=== PATIENT | female | born 1995 | race African-American/Black ===

== ENCOUNTER 2018-11-07 22:15 | Emergency (ER) | payer MEDICAID ==
[~2018-11-07] VITALS: Ht 149.9 cm; Wt 61.0 kg
[2018-11-07 23:32] LABS: CLARITY URINE CLOUDY (CLEAR); COLOR URINE YELLOW (YELLOW); KETONES URINE 4+ (NEGATIVE); LEUKOCYTE ESTERASE URINE NEGATIVE (NEGATIVE); NITRITE URINE NEGATIVE (NEGATIVE); OCCULT BLOOD URINE TRACE (NEGATIVE); PH URINE 5.5 (4.5-8.0); PROTEIN URINE 1+ (NEGATIVE); SPECIFIC GRAVITY URINE 1.035 (1.005-1.030)
[2018-11-08] MEDS ORDERED: ONDANSETRON HCL 4MG/2ML INJ IM STA (00:07)
[2018-11-08 00:56] LABS: BASOPHILS % 0.4 % (0.0-2.0); HEMATOCRIT. 42.1 % (36.0-48.0); HEMOGLOBIN. 14.2 g/dL (12.0-16.0); LYMPHOCYTES % 7.7 % (20.0-50.0); MEAN CORPUSCULAR HEMOGLOBIN 29.6 pg (28.0-32.0); MEAN CORPUSCULAR VOLUME 88.1 fL (81.0-99.0); MEAN PLATELET VOLUME 8.3 fl (7.4-10.4); MONOCYTES % 6.9 % (2.0-8.0); PLATELET 463 x1000/uL (130-400); RED BLOOD CELL COUNT 4.78 mill/uL (4.2-5.4); RED CELL DISTRIBUTION WIDTH 12.9 % (11.6-14.6)
[2018-11-08 01:00] LABS: CHLORIDE 106 mEq/L (98-107)
[2018-11-08] MEDS ORDERED: SODIUM CHLORIDE 0.9% 1,000 ML IV ONE (01:15)
[2018-11-08] MEDS ORDERED: ONDANSETRON HCL 4MG/2ML INJ IV SCH (01:15)
[2018-11-08] MEDS ORDERED: FAMOTIDINE 20MG/2ML VIAL IV SCH (01:15)
[2018-11-08] MEDS ORDERED: KETOROLAC 30MG/ML VIAL IV SCH (01:15)
[2018-11-08] MEDS ORDERED: POTASSIUM CHLORIDE 20MEQ TABLET SR PO SCH (02:00)
[2018-11-08 05:01] VITALS: BP 117/71
== END 2018-11-08 05:05 | disposition home or self-care (01) ==
LOC: ER 22:15
DX: T51.0X1A Toxic effect of ethanol, accidental (unintentional), initial encounter (principal); T37.3X1A Poisoning by other antiprotozoal drugs, accidental (unintentional), initial encounter; K52.9 Noninfective gastroenteritis and colitis, unspecified; E87.6 Hypokalemia; F12.10 Cannabis abuse, uncomplicated; R11.2 Nausea with vomiting, unspecified; J45.909 Unspecified asthma, uncomplicated; Z87.440 Personal history of urinary (tract) infections; Y92.018 Other place in single-family (private) house as the place of occurrence of the external cause
CPT/HCPCS: 36415; 80053; 81003; 81025; 83690; 85025; 96361; 96372; 96374; 96375; 99283; J1885; J2405; J3490; Z7610

== ENCOUNTER 2018-11-09 07:31 | Inpatient (IN) | payer MEDICAID ==
[~2018-11-09] VITALS: Ht 149.9 cm; Wt 61.2 kg
[2018-11-09] MEDS ORDERED: SODIUM CHLORIDE 0.9% 1,000 ML IV ONE ×3 (08:00→15:15)
[2018-11-09] MEDS ORDERED: ONDANSETRON HCL 4MG/2ML INJ IV ONE (08:00)
[2018-11-09 08:30] LABS: CHLORIDE 106 mEq/L (98-107)
[2018-11-09] MEDS ORDERED: METOCLOPRAMIDE HCL 10MG/2ML VIAL IV ONE (09:15)
[2018-11-09] MEDS: KCL 20MEQ/100ML PREMIX 100 ML IV NR ×4 (09:30→16:02)
[2018-11-09] MEDS ORDERED: MAGNESIUM 2 G PREMIX 50 ML IV ONE (12:45)
[2018-11-09] MEDS ORDERED: LORAZEPAM 2MG/ML CPJ IV ONE (12:45)
[2018-11-09 15:14] LABS: *AMPHETAMINES SCREEN URINE NEGATIVE (NEGATIVE); *BARBITURATES SCREEN URINE NEGATIVE (NEGATIVE)
[2018-11-09 15:15] LABS: *BENZODIAZEPINES SCREEN URINE NEGATIVE (NEGATIVE); *COCAINE SCREEN URINE NEGATIVE (NEGATIVE); METHADONE URINE SCREEN NEGATIVE (NEGATIVE); OPIATES URINE SCREEN NEGATIVE (NEGATIVE); PHENCYCLIDINE URINE SCREEN NEGATIVE (NEGATIVE)
[2018-11-09 15:18] LABS: CANNABINOID URINE SCREEN PRESUMTIVE POSITIVE (NEGATIVE)
[2018-11-09] MEDS ORDERED: DIPHENHYDRAMINE 50MG/ML VIAL IV PRN (18:45)
[2018-11-09] MEDS ORDERED: IPRATROPIUM/ALBUTEROL 0.5-3(2.5)MG/3ML NEB INH PRN (18:45)
[2018-11-09] MEDS ORDERED: HYDROCODONE/ACETAMINOPHEN 5/325MG TABLET PO PRN (18:45)
[2018-11-09] MEDS ORDERED: ACETAMINOPHEN 325MG TABLET PO PRN (18:45)
[2018-11-09] MEDS ORDERED: MAGNESIUM/ALUMINUM HYDROXIDE/SIMETHICONE 30ML UDC PO PRN (18:45)
[2018-11-09] MEDS ORDERED: CLONIDINE 0.1MG TABLET PO PRN (18:45)
[2018-11-09] MEDS ORDERED: IOHEXOL-350 100 ML BOTTLE ONE (19:21)
[2018-11-09 20:41] LABS: PHOSPHORUS 3.5 mg/dL (2.5-4.9)
[2018-11-09 22:00] VITALS: BP 124/72
[2018-11-09] MEDS: ONDANSETRON HCL 4MG/2ML INJ IV PRN (22:06)
[2018-11-09 23:12] VITALS: BP 124/72
[2018-11-09 23:38] LABS: CREATINE KINASE 36 IU/L (26-192)
[2018-11-10] VITALS: BP 122/55
[2018-11-10] MEDS ORDERED: DEXTROSE 50% WATER 50ML SYRINGE IV PRN (01:30)
[2018-11-10] MEDS: SODIUM CHLORIDE 0.9% 1,000 ML IV SCH ×2 (02:08→11:18)
[2018-11-10 04:00] VITALS: BP 127/69
[2018-11-10] MEDS: ONDANSETRON HCL 4MG/2ML INJ IV PRN ×2 (05:25→22:59)
[2018-11-10] MEDS: INSULIN LISPRO 100 UNITS/ML SUBCUT SCH ×4 (06:51→21:00)
[2018-11-10] MEDS: BLOOD SUGAR DIAGNOSTIC STRIP TEST SCH ×4 (06:51→21:04)
[2018-11-10 08:00] VITALS: BP 136/77
[2018-11-10] MEDS ORDERED: POTASSIUM CHLORIDE 20MEQ TABLET SR PO NR (10:45)
[2018-11-10 11:27] LABS: BASOPHILS % 1.1 % (0.0-2.0); EOSINOPHILS % 0.4 % (0.0-5.0); HEMATOCRIT. 33.6 % (36.0-48.0); HEMOGLOBIN. 11.3 g/dL (12.0-16.0); LYMPHOCYTES % 26.5 % (20.0-50.0); MEAN CORPUSCULAR HEMOGLOBIN 29.8 pg (28.0-32.0); MEAN CORPUSCULAR VOLUME 88.6 fL (81.0-99.0); MEAN PLATELET VOLUME 7.5 fl (7.4-10.4); MONOCYTES % 12.7 % (2.0-8.0); NEUTROPHILS % 59.3 % (40.0-76.0); PLATELET 324 x1000/uL (130-400); RED CELL DISTRIBUTION WIDTH 12.3 % (11.6-14.6)
[2018-11-10 11:33] LABS: CHLORIDE 107 mEq/L (98-107)
[2018-11-10 11:43] LABS: LDL CHOLESTEROL 58 mg/dL (5-100)
[2018-11-10 11:44] LABS: CREATINE KINASE 30 IU/L (26-192)
[2018-11-10 11:45] LABS: HDL CHOLESTEROL 30 mg/dL (40-59)
[2018-11-10 12:00] VITALS: BP 115/53
[2018-11-10] MEDS: METOCLOPRAMIDE HCL 10MG/2ML VIAL IV SCH ×2 (12:44→18:32)
[2018-11-10 16:00] VITALS: BP 139/76
[2018-11-10] MEDS ORDERED: POTASSIUM CHLORIDE 20MEQ TABLET SR PO SCH (18:15)
[2018-11-11 00:03] VITALS: BP 142/67
[2018-11-11 04:00] VITALS: BP 125/69
[2018-11-11] MEDS: METOCLOPRAMIDE HCL 10MG/2ML VIAL IV SCH ×2 (06:00)
[2018-11-11] MEDS: BLOOD SUGAR DIAGNOSTIC STRIP TEST SCH (06:28)
[2018-11-11] MEDS: INSULIN LISPRO 100 UNITS/ML SUBCUT SCH (07:50)
[2018-11-11 08:10] VITALS: BP 116/46
[2018-11-11] MEDS: ONDANSETRON HCL 4MG/2ML INJ IV PRN (09:27)
[2018-11-11] MEDS: SODIUM CHLORIDE 0.9% 1,000 ML IV SCH (09:35)
[2018-11-11] MEDS ORDERED: ONDA4TAB5 MT (10:49)
[2018-11-11 12:17] VITALS: BP 133/65
[2018-11-11 12:30] VITALS: BP 133/65
== END 2018-11-11 13:40 | disposition home or self-care (01) | DRG 422 ==
LOC: ER 08:29 → 6WST 16:00 → EDBEDREQ 16:07 → ENRESERV 20:09
PROVIDERS: ADMIT Internal Medicine; ATTEND Internal Medicine
DX: E86.0 Dehydration (principal); E44.1 Mild protein-calorie malnutrition; R65.10 Systemic inflammatory response syndrome (SIRS) of non-infectious origin without acute organ dysfunction; E87.6 Hypokalemia; R00.0 Tachycardia, unspecified; F12.90 Cannabis use, unspecified, uncomplicated; T50.6X5A Adverse effect of antidotes and chelating agents, initial encounter; N76.0 Acute vaginitis; Y92.89 Other specified places as the place of occurrence of the external cause
CPT/HCPCS: 36415; 71045; 71275; 76604; 80048; 80061; 80305; 82248; 82550; 82962; 83735; 83880; 84100; 84443; 84484; 85379; 93005; 96361; 96374; 96375; 97116; 97162; 97165; 97535; 99285; C1893; J2060; J2405; J2765; J3475; J3480; J7030; Q9967

== ENCOUNTER 2019-06-01 01:45 | Emergency (ER) | payer MEDICAID ==
[~2019-06-01] VITALS: Ht 149.9 cm; Wt 53.0 kg
[~2019-06-01 01:45] MED LIST: ONDA4TAB5 MT
[2019-06-01 02:44] LABS: BASOPHILS % 0.8 % (0.0-2.0); EOSINOPHILS % 5.3 % (0.0-5.0); HEMATOCRIT. 35.6 % (36.0-48.0); LYMPHOCYTES % 44.9 % (20.0-50.0); MEAN CORPUSCULAR VOLUME 83.5 fL (81.0-99.0); MEAN PLATELET VOLUME 7.8 fl (7.4-10.4); PLATELET 404 x1000/uL (130-400); RED BLOOD CELL COUNT 4.27 mill/uL (4.2-5.4); RED CELL DISTRIBUTION WIDTH 13.3 % (11.6-14.6)
[2019-06-01 02:46] LABS: CHLORIDE 107 mEq/L (98-107)
[2019-06-01 02:53] LABS: CLARITY URINE CLEAR (CLEAR); COLOR URINE YELLOW (YELLOW); KETONES URINE NEGATIVE (NEGATIVE); LEUKOCYTE ESTERASE URINE TRACE (NEGATIVE); NITRITE URINE NEGATIVE (NEGATIVE); OCCULT BLOOD URINE NEGATIVE (NEGATIVE); PROTEIN URINE NEGATIVE (NEGATIVE); UROBILINOGEN URINE 0.2 E.U./dL (0.2-1.0)
[2019-06-01 06:27] VITALS: BP 106/65
== END 2019-06-01 06:39 | disposition home or self-care (01) ==
LOC: ER 01:45
DX: N83.202 Unspecified ovarian cyst, left side (principal); F12.10 Cannabis abuse, uncomplicated
CPT/HCPCS: 36415; 76830; 76856; 81003; 81025; 99284

== ENCOUNTER 2019-07-21 00:12 | Emergency (ER) | payer MEDICAID ==
[~2019-07-21] VITALS: Ht 149.9 cm; Wt 50.0 kg
[2019-07-21] MEDS ORDERED: PENICILLIN G BENZATHINE 2,400,000 UNITS/4ML SYR IM ONE (02:45)
[2019-07-21] MEDS ORDERED: AZITHROMYCIN 500 MG TABLET PO ONE (02:45)
[2019-07-21 03:35] VITALS: BP 124/76
== END 2019-07-21 03:36 | disposition home or self-care (01) ==
LOC: ER 00:12
DX: A57 Chancroid (principal); A64 Unspecified sexually transmitted disease; F12.10 Cannabis abuse, uncomplicated
CPT/HCPCS: 86592; 96372; 99283; J0561; Z7610

== ENCOUNTER 2019-08-06 21:12 | Inpatient (IN) | payer MEDICAID ==
[~2019-08-06] VITALS: Ht 144.8 cm; Wt 53.1 kg
[2019-08-06] MEDS ORDERED: ONDANSETRON HCL 4MG/2ML INJ IV STA (22:10)
[2019-08-06] MEDS ORDERED: SODIUM CHLORIDE 0.9% 1,000 ML IV ONE ×2 (22:10→22:15)
[2019-08-06] MEDS ORDERED: MORPHINE SULFATE 4 MG/ML CPJ (NOT FOR IM USE) IV STA (22:10)
[2019-08-06 22:52] LABS: HEMATOCRIT. 39.2 % (36.0-48.0); HEMOGLOBIN. 13.3 g/dL (12.0-16.0); MEAN CORPUSCULAR HEMOGLOBIN 27.7 pg (28.0-32.0); MEAN CORPUSCULAR VOLUME 81.6 fL (81.0-99.0); MEAN PLATELET VOLUME 8.3 fl (7.4-10.4); PLATELET 263 x1000/uL (130-400)
[2019-08-06 22:57] LABS: CHLORIDE 101 mEq/L (98-107)
[2019-08-06 22:58] LABS: HCG SCREEN NEGATIVE
[2019-08-06 23:11] LABS: PLATELET ESTIMATE NORMAL
[2019-08-06 23:17] LABS: CLARITY URINE CLEAR (CLEAR); COLOR URINE YELLOW (YELLOW); KETONES URINE 3+ (NEGATIVE); LEUKOCYTE ESTERASE URINE TRACE (NEGATIVE); NITRITE URINE NEGATIVE (NEGATIVE); OCCULT BLOOD URINE 3+ (NEGATIVE); PH URINE 6.5 (4.5-8.0); PROTEIN URINE TRACE (NEGATIVE); SPECIFIC GRAVITY URINE 1.016 (1.005-1.030)
[2019-08-07] MEDS ORDERED: KETOROLAC 30MG/ML VIAL IV ONE (00:30)
[2019-08-07] MEDS ORDERED: SODIUM CHLORIDE 0.9% 1,000 ML IV ONE ×2 (02:00→03:45)
[2019-08-07] MEDS ORDERED: CEFTRIAXONE 1 G PREMIX 50 ML IV ONE (02:00)
[2019-08-07 09:30] VITALS: BP 126/83
[2019-08-07 09:40] VITALS: BP 126/83
[2019-08-07] MEDS ORDERED: SODIUM CHLORIDE 0.9% 1,000 ML IV SCH (10:45)
[2019-08-07 12:00] VITALS: BP 128/70
[2019-08-07] MEDS: SODIUM CHLORIDE 0.9% 1,000 ML IV SCH (14:35)
[2019-08-07] MEDS: ACETAMINOPHEN 325MG TABLET PO PRN ×2 (14:44→21:56)
[2019-08-07] MEDS: ONDANSETRON HCL 4MG/2ML INJ IV PRN ×2 (14:45→22:49)
[2019-08-07 16:00] VITALS: BP 121/75
[2019-08-07] MEDS: IPRATROPIUM/ALBUTEROL 0.5-3(2.5)MG/3ML NEB NEB PRN (18:01)
[2019-08-07 20:00] VITALS: BP 130/85
[2019-08-07] MEDS ORDERED: METHYLPREDNISOLONE SOD SUCC 125 MG/2 ML VIAL IV NR (20:00)
[2019-08-07] MEDS: FAMOTIDINE 20MG/2ML VIAL IV SCH (21:52)
[2019-08-07] MEDS: AZITHROMYCIN 500 MG in DEXT 5% WATER 250 ML IV SCH (21:53)
[2019-08-08] VITALS: BP 124/79
[2019-08-08] MEDS: SODIUM CHLORIDE 0.9% 1,000 ML IV SCH ×3 (01:58→21:29)
[2019-08-08] MEDS: CEFTRIAXONE 1 G PREMIX 50 ML IV SCH (02:01)
[2019-08-08 04:00] VITALS: BP 135/85
[2019-08-08 06:47] LABS: HEMOGLOBIN. 11.5 g/dL (12.0-16.0); MEAN CORPUSCULAR HEMOGLOBIN 27.7 pg (28.0-32.0); MEAN CORPUSCULAR VOLUME 81.6 fL (81.0-99.0); MEAN PLATELET VOLUME 8.6 fl (7.4-10.4); PLATELET 218 x1000/uL (130-400); RED BLOOD CELL COUNT 4.17 mill/uL (4.2-5.4); RED CELL DISTRIBUTION WIDTH 13.4 % (11.6-14.6)
[2019-08-08 07:06] LABS: CHLORIDE 107 mEq/L (98-107)
[2019-08-08 08:00] VITALS: BP 132/74
[2019-08-08] MEDS: METHYLPREDNISOLONE SOD SUCC 40 MG/ML VIAL IV SCH ×3 (09:00→21:26)
[2019-08-08] MEDS: FAMOTIDINE 20MG/2ML VIAL IV SCH ×2 (09:00→21:26)
[2019-08-08 10:34] LABS: PLATELET ESTIMATE NORMAL
[2019-08-08] MEDS ORDERED: POTASSIUM CHLORIDE 20MEQ TABLET SR PO NR (11:15)
[2019-08-08 16:00] VITALS: BP 115/66
[2019-08-08] MEDS ORDERED: FERROUS SULFATE 325MG TABLET PO SCH (17:40)
[2019-08-08] MEDS: IPRATROPIUM/ALBUTEROL 0.5-3(2.5)MG/3ML NEB NEB PRN (17:48)
[2019-08-08 20:00] VITALS: BP 128/67
[2019-08-08] MEDS ORDERED: ASCORBIC ACID 250 MG TABLET PO SCH (21:00)
[2019-08-08] MEDS: AZITHROMYCIN 500 MG in DEXT 5% WATER 250 ML IV SCH (21:26)
[2019-08-09] VITALS: BP 116/69
[2019-08-09] MEDS: CEFTRIAXONE 1 G PREMIX 50 ML IV SCH (02:31)
[2019-08-09 04:00] VITALS: BP 126/69
[2019-08-09] MEDS: METHYLPREDNISOLONE SOD SUCC 40 MG/ML VIAL IV SCH ×2 (05:28→14:03)
[2019-08-09] MEDS: SODIUM CHLORIDE 0.9% 1,000 ML IV SCH (06:56)
[2019-08-09 08:00] VITALS: BP 119/63
[2019-08-09] MEDS: FAMOTIDINE 20MG/2ML VIAL IV SCH (08:30)
[2019-08-09 12:00] VITALS: BP 123/67
[2019-08-09 12:25] LABS: BASOPHILS % 0.1 % (0.0-2.0); HEMOGLOBIN. 10.9 g/dL (12.0-16.0); LYMPHOCYTES % 16.1 % (20.0-50.0); MEAN CORPUSCULAR HEMOGLOBIN 27.9 pg (28.0-32.0); MEAN CORPUSCULAR VOLUME 81.9 fL (81.0-99.0); MEAN PLATELET VOLUME 8.7 fl (7.4-10.4); MONOCYTES % 7.3 % (2.0-8.0); NEUTROPHILS % 76.5 % (40.0-76.0); PLATELET 261 x1000/uL (130-400); RED BLOOD CELL COUNT 3.91 mill/uL (4.2-5.4); RED CELL DISTRIBUTION WIDTH 13.8 % (11.6-14.6)
[2019-08-09 12:31] LABS: CHLORIDE 111 mEq/L (98-107)
[2019-08-09] MEDS ORDERED: POTASSIUM CHLORIDE 20MEQ/PACKET PO NR (14:15)
[2019-08-09 16:21] VITALS: BP 128/78
== END 2019-08-09 17:35 | disposition home or self-care (01) | DRG 145 ==
LOC: ER 21:12 → 8WST 08-07 03:34 → ENRESERV 08-07 07:06
PROVIDERS: ADMIT Internal Medicine; ATTEND Internal Medicine
DX: J20.9 Acute bronchitis, unspecified (principal); A05.9 Bacterial foodborne intoxication, unspecified; D18.03 Hemangioma of intra-abdominal structures; E86.0 Dehydration; E87.6 Hypokalemia; J45.909 Unspecified asthma, uncomplicated; N39.0 Urinary tract infection, site not specified; R74.0 Nonspecific elevation of levels of transaminase and lactic acid dehydrogenase [LDH]; R00.0 Tachycardia, unspecified; Z87.440 Personal history of urinary (tract) infections
CPT/HCPCS: 36415; 71045; 74021; 76700; 80076; 81003; 81025; 83605; 83735; 84145; 84484; 84703; 87015; 87045; 87427; 87449; 87493; 87804; 89055; 93970; 94640; 96361; 96365; 96375; 99291; J0456; J0696; J1885; J2270; J2405; J2920; J2930; J3490; J7030; J7060; J7620